=== PATIENT | female | born 1975 | race Caucasian/White ===

== ENCOUNTER 2022-12-12 13:46 | Emergency (ER) | payer OTHER ==
[2022-12-12 14:04] VITALS: BP 126/70; PULSE 96; RESP 16; TEMP 99; BMI 20.5
[2022-12-12] MEDS ORDERED: ACETAMINOPHEN 500 MG TABLET (FP) PO ONE (14:27)
[2022-12-12] MEDS ORDERED: DIPHTH,PERTUSS(ACELL),TET 0.5 ML DISP.SYRIN IM ONE ×2 (14:27→14:33)
[2022-12-12] MEDS ORDERED: IBUPROFEN 600 MG TABLET (FP) PO ONE ×2 (14:27→14:33)
[2022-12-12] MEDS ORDERED: ACETAMINOPHEN 500 MG TABLET (FP) ONE (14:32)
[2022-12-12] MEDS ORDERED: AMOX TR/POT CLAV 875MG/125MG TABLETS (FP) PO ONE (17:57)
[2022-12-12] MEDS ORDERED: AMOX TR/POT CLAV 875MG/125MG TABLETS (FP) ONE (17:58)
== END 2022-12-12 18:03 | disposition home or self-care (01) ==
LOC: FER 13:46
PROC: 2W3DX1Z Immobilization of Left Lower Arm using Splint (ICD-10-PCS; principal; 2022-12-12)
PROC: 3E0234Z Introduction of Serum, Toxoid and Vaccine into Muscle, Percutaneous Approach (ICD-10-PCS; 2022-12-12)
DX: S62.307A Unspecified fracture of fifth metacarpal bone, left hand, initial encounter for closed fracture (principal); S61.452A Open bite of left hand, initial encounter; W54.0XXA Bitten by dog, initial encounter
CPT/HCPCS: 73130-TC-LT-FY; 73130-TC-RT-FY; 90715; 99284-25